=== PATIENT | male | born 1990 | race Caucasian/White ===

== ENCOUNTER 2016-07-19 22:38 | Day surgery (SDC) | payer OTHER, SELFPAY ==
[~2016-07-19] VITALS: Ht 188 cm; Wt 78.8 kg
--- NOTE | 2016-07-20 00:40 | REPUSA ---
CLINICAL HISTORY: Evaluate foreign body. TECHNIQUE: Multiple axial CT images were obtained through the neck without IV contrast material. MPR coronal and sagittal sequences were obtained. COMMENTS: The oropharyngeal soft tissues are normal and bilaterally symmetric. The piriform sinuses are normal. There is no supra or infraglottic laryngeal mass. The proximal trachea is normal. There is no paravertebral soft tissue mass. The salivary glands are normal. There is no deep cervical or jugular lymphadenopathy. The paravertebral soft tissue space is normal. Limited images through the posterior fossa demonstrate no evidence for tonsilar herniation. Evaluation of the visualized lung apices reveals no evidence for abnormality. IMPRESSION: No radiodense foreign body is seen. Mild chronic mucosal inflammatory changes of the maxillary sinuses. Thank you for your kind referral of this patient.
[2016-07-20] MEDS ORDERED: GLUCAGON FOR INJ 1 MG VIAL (J1610) IV STA ×2 (01:01→02:14)
[2016-07-20] MEDS ORDERED: NITROGLYCERIN 0.4 MG SUBL TABLET SL STA ×2 (02:14→03:06)
[2016-07-20] MEDS ORDERED: METAL LOCK LOOP XX ONE ×2 (02:19→02:24)
[2016-07-20] MEDS ORDERED: NEOSPORIN OINT 0.9 GM PKT (FLOOR STOCK) As Ordered ONE (02:20)
[2016-07-20 03:06] VITALS: BP 136/73
[2016-07-20] MEDS ORDERED: PROPOFOL 200 MG/20 ML VIAL As Ordered ONE ×2 (04:26→05:03)
[2016-07-20 05:55] VITALS: BP 118/64
--- NOTE | 2016-07-20 06:13 | HPE ---
DATE OF ADMISSION: 07/20/2016 CHIEF COMPLAINT: Food stuck in throat. HISTORY OF PRESENT ILLNESS The patient is 25-year-old male who has had history of foods stuck in his throat and difficulty swallowing for at least four years, occurs multiple times a week, usually he is able to just take a sip of water and he is able to get the food to pass. However, this the first time he has ever had difficulty swallowing his own secretions. He has never had any upper endoscopy before. No other surgeries of any kind. Denies any problems with acid reflux or heartburn. No problems with family history of esophageal problems. He does not smoke, social alcohol and very limited amounts of caffeine, spicy food and acidic food. No [id number] medications. PAST MEDICAL HISTORY: Negative. PAST SURGICAL HISTORY: Negative. ALLERGIES: SHELLFISH. MEDICATIONS: None. FAMILY HISTORY: Noncontributory. REVIEW OF SYSTEMS Pertinent positives and negatives as stated in the history of present illness (HPI). PHYSICAL EXAMINATION: GENERAL: Alert and oriented times three. No acute stress. VITALS: Stable, afebrile. HEENT: Pupils equal, round, and reactive to light and accommodation. HEART: S1, S2. Regular rate and rhythm. LUNGS: Clear to auscultation bilaterally. ABDOMEN: Soft, nontender, nondistended. Bowel sounds positive. EXTREMITIES: No clubbing, cyanosis or edema. LABORATORY DATA: None obtained. IMAGING: He had a neck CT which showed no signs of radiodense foreign bodies. Mild chronic mucosal inflammatory changes in the maxillary sinuses. ASSESSMENT AND PLAN: The patient is a 25-year-old male with esophageal foreign body. RECOMMENDATION: Is to take him to the operating room for esophagogastroduodenoscopy (EGD) with removal of this foreign body that is likely chicken. Risks and benefits of the procedure not limited to but including bleeding, infection, perforation were discussed in detail with the patient. Informed was obtained. Procedure was planned. Postoperatively as long as the food is removed, he will be given instructions for followup and discharged home shortly after. Dictation
[2016-07-20 06:25] VITALS: BP 139/63
--- NOTE | 2016-07-20 06:37 | RO ---
DATE OF PROCEDURE: 07/20/2016 PREOPERATIVE DIAGNOSIS: Esophageal foreign body. POSTOPERATIVE DIAGNOSIS: Esophageal foreign body due to chicken. PROCEDURE: EGD with removal of foreign body. SURGEON: Delta Hayes DO [employer] STRIP INSPECTOR: None. ANESTHESIA: IV sedation. COMPLICATIONS: None. INDICATION FOR PROCEDURE: Patient is a 25-year-old male with chicken stuck in his throat. He is unable to keep his own secretions down. The ER has attempted glucagon, nitro and tiffanie osiris without any success. Therefore, I have been called to evaluate. Recommendation was for EGD with removal of obstruction. Risks and benefits of the procedure not limited to but including bleeding, infection, perforation were discussed in detail with the patient. Informed was obtained and procedure was planned. DESCRIPTION OF PROCEDURE: Patient brought back to operating room 3. After sufficient sedation, he was placed in left lateral decubitus position and a bite block was placed. Next, a time out was done to confirm proper patient and proper procedure. Following that, gastroscope was passed through the oropharynx into the esophagus. All the way down at the distal esophagus there was large amount of food impacted at the GE junction. Using a large grasper, multiple attempts were made to remove chunks of chicken, one piece at a time. It was too large to fit a bag around and to compacted to be able to be pressed down into the stomach. So after about 10 passes and removal of chicken, I was finally able to push the rest of the into the stomach. After doing so, I passed the scope into the duodenum. There were signs of any inflammation. The scope was brought back inside of the stomach. There was diffuse mild gastritis. No signs of any bleeding or ulceration, no masses. The scope was then brought back up into the esophagus. The GE junction seemed to be intact. There was no signs of any stricturing or narrowing. No esophageal webbing. No signs of hiatal hernia. The scope was brought back up into the esophagus. There were multiple contractions of the esophagus throughout this entire procedure that we had to wait for to be able to pull food out. The scope was then removed the rest of the way. The patient was awakened from anesthesia and sent to the postanesthesia care unit (PACU) in stable condition.
[2016-07-20 07:25] VITALS: BP 127/70
== END 2016-07-20 07:25 | disposition home or self-care (01) ==
LOC: M ED 23:45 → M SDC 23:46 → M PED 23:46 → M ED 07-20 04:23 → M OROP 07-20 04:37 → M PED 07-20 05:51 → M OROP 07-20 05:51 → M SDC 07-20 07:25 → M PED 07-20 07:25
PROVIDERS: ATTEND Surgery
DX: T18.128A Food in esophagus causing other injury, initial encounter (principal); X58.XXXA Exposure to other specified factors, initial encounter; Y92.89 Other specified places as the place of occurrence of the external cause; Z91.013 Allergy to seafood
CPT/HCPCS: 43247; 70490; 88300; 96374; 96376; 99285; J1610